=== PATIENT | female | born 1945 | race Caucasian/White ===

== ENCOUNTER 2021-02-25 10:46 | Inpatient (IN) | payer OTHER ==
[~2021-02-25] VITALS: Ht 167.6 cm; Wt 63.5 kg
[2021-02-25 10:59] VITALS: BP 165/95
[2021-02-25 11:26] LABS: URINE BILIRUBIN NEGATIVE (Negative); URINE BLOOD TRACE (Negative); URINE CLARITY CLEAR; URINE COLOR YELLOW; URINE GLUCOSE-RANDOM* NEGATIVE (Negative); URINE KETONES 1+ (Negative); URINE LEUKOCYTES-REFLEX NEGATIVE (Negative); URINE PROTEIN (DIPSTICK) 1+ (Negative); URINE UROBILINOGEN 0.2 E.U./dl (0.2-1.0)
[2021-02-25 11:28] LABS: ABSOLUTE NEUTROPHILS 14.3 thou/uL (1.4-8.2); BASOPHILS 0.2 % (0.0-2.0); HEMATOCRIT 50.6 % (37.0-47.0); HEMOGLOBIN 16.9 gm/dL (12.0-15.0); LYMPHOCYTES 4.7 % (24.0-44.0); MCH 30.1 pg (26.0-34.0); MCHC 33.4 g/dL (28.0-37.0); MCV 90.2 fL (80.0-100.0); MONOCYTES 6.1 % (1.0-8.0); PLATELET COUNT 320 thou/uL (150-400); RBC 5.61 mil/uL (4.20-5.00); RDW 13.5 % (10.5-14.5)
[2021-02-25 11:32] LABS: URINE NITRITE-REFLEX POSITIVE (Negative)
[2021-02-25 11:33] LABS: CALCIUM 9.9 mg/dL (8.5-10.1); CREATININE 0.9 mg/dL (0.6-1.0); POTASSIUM 3.9 mmol/L (3.5-5.1)
[2021-02-25 11:39] LABS: ALBUMIN 4.5 g/dL (3.4-5.0); TOTAL BILIRUBIN 0.9 mg/dL (0.2-1.0)
[2021-02-25 11:50] LABS: AMORPHOUS URATES Many /LPF (None Seen); SQUAMOUS None Seen /LPF (0-3); URINE WBC-REFLEX 6-15 Few /HPF (0-5)
[2021-02-25 11:51] LABS: BACTERIA-REFLEX 1-9 Few /HPF (None Seen); CASTS None Seen /LPF (None Seen); URINE RBC None Seen /HPF (NONE SEEN)
--- NOTE | 2021-02-25 17:30 | NUR ---
CECIT TO KERI.
--- NOTE | 2021-02-26 04:24 | NUR ---
ADMITTED TO THE UNIT AT APPROXIMATELY 2200. PT IS A/O X4 AND IS UP WITH ASSISTANCE. NG TUBE IN PLACE AND HOOKED UP TO LOW INTERMITTENT SUCTION. PATENT AND DRAINING BROWN LIQUID. ADMISSION COMPLETE. PT HAS BEEN EDUCATED ON USE OF CALL LIGHT AND BED CONTROLS. FALL PRECUATIONS IN PLACE, CALL LIGHT IS WITHIN REACH.
[2021-02-26] MEDS ORDERED: PRED FORTE 1% EY5 M1 LT. EYE (05:38)
[2021-02-26] MEDS ORDERED: KETOROLAC 0.5% E5 ML (05:39)
[2021-02-26 07:35] VITALS: BP 144/99
[2021-02-26 08:07] LABS: HEMATOCRIT 47.4 % (37.0-47.0); HEMOGLOBIN 15.9 gm/dL (12.0-15.0); MCH 30.1 pg (26.0-34.0); MCHC 33.5 g/dL (28.0-37.0); MCV 89.7 fL (80.0-100.0); RBC 5.28 mil/uL (4.20-5.00); RDW 13.5 % (10.5-14.5)
[2021-02-26 08:49] LABS: ALBUMIN 3.6 g/dL (3.4-5.0); CALCIUM 9.4 mg/dL (8.5-10.1); CREATININE 0.6 mg/dL (0.6-1.0); MAGNESIUM 1.9 mg/dL (1.8-2.4); PHOSPHORUS 3.7 mg/dL (2.5-4.9); POTASSIUM 3.6 mmol/L (3.5-5.1)
--- NOTE | 2021-02-26 17:16 | NUR ---
PT ASSESSED AT START OF SHIFT. NPO W/ NG TO LIS W/ DK REDDISH BROWN OUTPUT. IRRIGATED W/ NS TWICE. AMBULATED THE HALLS SEVERAL LAPS. STATES ABD PAIN MUCH BETTER AND ALMOST GONE. NO FLATUS PASSED. NO C/O NAUSEA.
[2021-02-26 19:45] VITALS: BP 175/94
--- NOTE | 2021-02-27 03:17 | NUR ---
PT IS A/O X4 AND IS UP WITH ASSISTANCE. C/O STOMACH DISCOMFORT. SCHEDULED PEPSID GIVEN DIRECTED. FALL PRECAUTIONS IN PLACE, CALL LIGHT IS WITHIN REACH. NG TO RIGHT NARE HOOKED UP TO LOW INTERMITTENT SUCTION. FALL PRECUATIONS IN PLACE,CALL LIGHT IS WITHIN REACH. PT CALLS OUT APPROPRIATELY FOR ASSISTANCE.
[2021-02-27 09:00] VITALS: BP 153/93
[2021-02-27 09:11] VITALS: BP 174/105
[2021-02-27 10:16] LABS: CALCIUM 9.3 mg/dL (8.5-10.1); CREATININE 0.7 mg/dL (0.6-1.0); POTASSIUM 3.4 mmol/L (3.5-5.1)
--- NOTE | 2021-02-27 12:30 | NUR ---
ASSUMED PT CARE THIS AM. PT HAS NG TUBE ON R NARIS WITH LOW INTERMITTENT SUCTION IN PLACE AND FOR DECOMPRESSION. PT C/O OF PAIN AND GIVEN PAIN MEDICATION PER PT REQUEST. CALLED RADIOLOGY THAT DR WANTED XR SMALL BOWEL SERIES TO BE DONE TODAY PER DR ORDERED. PT IS STAND BY ASSIST TO THE BATHROOM. PT WAS AMBULATING IN THE HALLWAY THIS MORNING. WILL CONTINUE TO MONITOR PT. FOLLOW POC.
[2021-02-27 16:00] VITALS: BP 171/105
[2021-02-27 20:00] VITALS: BP 183/123
[2021-02-27 23:19] VITALS: BP 135/69
--- NOTE | 2021-02-28 03:56 | NUR ---
PT IS A/O X4 AND IS UP WITH ASSIST. BP ELEVATED. PRN HYDRALAZINE GIVEN DIRECTED. BP LEVEL CURRENTLY WNL. PT AT THIS TIME IS RESTING IN THE RECLINER STATING SHE IS FEELING MUCH BETTER. NG DRAINING COPIUS AMOUNTS OF DARK GREEN LIQUID THIS SHIFT. FALL PRECUATIONS IN PLACE, CALL LIGHT IS WITHIN REACH.
[2021-02-28 06:59] LABS: HEMATOCRIT 47.9 % (37.0-47.0); HEMOGLOBIN 16.3 gm/dL (12.0-15.0); MCH 30.7 pg (26.0-34.0); MCHC 34.1 g/dL (28.0-37.0); MCV 90.2 fL (80.0-100.0); RBC 5.31 mil/uL (4.20-5.00); RDW 13.3 % (10.5-14.5); WBC 7.8 thou/uL (4.0-11.0)
[2021-02-28 07:00] VITALS: BP 177/113
[2021-02-28 07:24] LABS: ALBUMIN 3.8 g/dL (3.4-5.0); CALCIUM 9.8 mg/dL (8.5-10.1); CREATININE 0.9 mg/dL (0.6-1.0); MAGNESIUM 2.6 mg/dL (1.8-2.4); PHOSPHORUS 3.5 mg/dL (2.5-4.9); POTASSIUM 3.3 mmol/L (3.5-5.1)
--- NOTE | 2021-02-28 11:21 | NUR ---
A/O X 4. ROOM AIR. STAND BY ASSIST. NG TUBE TO RIGHT NARE @ 60 LOW INTERMITTENT SUCTION WITH DARK GREEN OUTPUT IN CANISTER. AC HS ACCU CHECKS. NO N/V. WALKS AROUND UNIT OFTEN. NPO ABLE TO HAVE A CUP OF ICE CHIPS PER EVERY 6HOURS. BP 177/113 CLONIDINE PATCH PLACED LEFT UPPER ARM. NPO FULLY AFTER MIDNIGHT FOR SURGERY TOMORROW WITH .
[2021-02-28 19:47] VITALS: BP 173/116
--- NOTE | 2021-02-28 23:06 | NUR ---
ASSUMED CARE OF PT AT 1920. PT IS A&OX4. IS ON ROOM AIR. DENIES ABD PAIN. NG TUBE IN RIGHT NARE ON LOW INTERMITTENT SUCTION, WITH DARK GREEN GI CONTENTS. DENIES N/V. IS ALLOWED TO HAVE 1 CUP OF ICE CHIPS Q4H. LAST GIVEN AT 2200. IS NPO AT MIDNIGHT TONIGHT FOR TOMORROWS PROCEDURE. IS UP ADLIB TO BSC. CALLS FOR ASSISTANCE FOR FURTHER DISTANCE. PT BP WAS ELEVATED. PRN HYDRALYZINE ADMINISTERED. PT DENIES HEADACHE OR OTHER SYMPTOMS. HOURLY ROUNDING CONTINUED THIS SHIFT. LABS & VITALS REVIEWED. PT IS CURRENTLY IN BED, WATCHING TV. CALL LIGHT WITHIN REACH. WILL CONTINUE TO MONITOR.
[2021-03-01] VITALS (7 sets, daily range): BP systolic 133–153; BP diastolic 75–94
[2021-03-01 05:56] LABS: HEMATOCRIT 45.5 % (37.0-47.0); HEMOGLOBIN 15.6 gm/dL (12.0-15.0); MCH 30.9 pg (26.0-34.0); MCHC 34.3 g/dL (28.0-37.0); MCV 89.9 fL (80.0-100.0); RBC 5.05 mil/uL (4.20-5.00); RDW 13.3 % (10.5-14.5); WBC 8.8 thou/uL (4.0-11.0)
[2021-03-01 06:25] LABS: CALCIUM 9.1 mg/dL (8.5-10.1); CREATININE 0.8 mg/dL (0.6-1.0)
[2021-03-01 06:30] LABS: POTASSIUM 2.9 mmol/L (3.5-5.1)
--- NOTE | 2021-03-01 18:30 | NUR ---
PT ASSESSED AT START OF SHIFT. NPO THIS AM FOR EXP LAP W/ RELEASE OF ADHESION. NG TUBE REMAINS TO LIS W/ DK GREEN OUTPUT. TAKING ICE CHIPS PER ORDER. DENIES PAIN OR NAUSEA. IV FLUIDS INFUSING. VOIDS PER BSC W/ STANDBY.
[2021-03-02 05:45] LABS: CALCIUM 8.4 mg/dL (8.5-10.1); CREATININE 0.8 mg/dL (0.6-1.0); POTASSIUM 3.3 mmol/L (3.5-5.1)
[2021-03-02 06:28] LABS: HEMATOCRIT 41.3 % (37.0-47.0); HEMOGLOBIN 13.8 gm/dL (12.0-15.0); MCH 30.5 pg (26.0-34.0); MCHC 33.6 g/dL (28.0-37.0); RBC 4.53 mil/uL (4.20-5.00); RDW 13.4 % (10.5-14.5); WBC 9.3 thou/uL (4.0-11.0)
[2021-03-02 07:32] VITALS: BP 117/75
--- NOTE | 2021-03-02 07:34 | NUR ---
RECEIVED CARE OF THIS PATIENT AT 1900. PATIENT ALERT AND ORIENTED X4. UP TO BSC WITH SBA. HAS NG IN R [place] HOOKED TO [facility] WITH INTERMITTEN SUCTION. ACCUCHECK WAS 131, RECEIVED 4 UNITS LISPRO INSULIN. HAS 2 PIV'S WITH FLUIDS INFUSING IN THE RHAND. DENIES PAIN. SLEPT OFF AND ON DURING NIGHT. REMAINS NPO EXCEPT FOR ICE CHIPS.
--- NOTE | 2021-03-02 10:20 | NUR ---
ASSUMED PT CARE THIS AM. PT IS ALERT & ORIENTED X4. PT HAS IV SITES ON R HAND AND L WRIST. PT IS NPO EXCEPT MEDS. PT IS ON ROOM AIR. PT AMBULATED WITH [employer] FIRST OFFICER THIS AM. PT HAS NG TUBE ON R NARIS WITH LOW INT SUCTION. NO C/O OF PAIN, NAUSEA AND VOMITING. PT STATED THAT SHE IS PASSING A LITTLE BIT OF GAS. PT HAS 4 LAP SITES WITH DERMABOND C/D/I AND OPEN TO AIR. WILL CONTINUE TO MONITOR PT. FOLLOW POC.
--- NOTE | 2021-03-02 13:39 | NUR ---
Assess due to admit with SBO and pt has been npo/clears for past 5 days. No reported wt loss, but intake down with n/v and required NGT and OR on 03/01. Noted pt usually active prior admit, BMI 22. Presents low nutrition risk and will follow for timely diet advance.
--- NOTE | 2021-03-02 17:38 | NUR ---
Patient admits with uti/SBO. 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 She excercises, drives, uses no assistive device. Patient reports her insurance changed to [employer] this year. She gave information to [employer]. Sister her support in community. [facility] patient interested [facility] care but does not have a PCP. will inquire into Hospitalist if can follow for home health care. [facility] following.
[2021-03-02 18:10] VITALS: BP 112/66
[2021-03-02 19:42] VITALS: BP 104/68
--- NOTE | 2021-03-03 02:34 | NUR ---
PT HAS PROGRESSED DIET TO CRACKERS. TOLERATING WELL. PT IS A/O X4 AND IS UP AD ALAN. VSS. MEDICATION GIVEN DIRECTED. PT IS PROGRESSING TOWARDS PLAN OF DC GOALS. CALLS OUT APPROPRIATELY FOR ASSISTANCE. CALL LIGHT IS WITHIN REACH
[2021-03-03 07:48] VITALS: BP 144/77
--- NOTE | 2021-03-03 13:15 | NUR ---
ASSUMED PT CARE THIS AM. PT IS ALERT & ORIENTED X4. PT HAS IV SITE ON L WRIST. PT LAST BM WAS TODAY. PT TOLERATED DIET AND MEDICATION WELL. PT IS ON ROOM AIR. PT IS ACCUCHECK ACHS. NO C/O OF PAIN, NAUSEA AND VOMITING. WILL CONTINUE TO MONITOR PT. FOLLOW POC.
[2021-03-03 14:08] VITALS: BP 144/77
--- NOTE | 2021-03-03 15:18 | NUR ---
met with patient and plan home today. Patient wanting home health care. Reviewed with patient again, no preference for company. Faxed referral to [facility] they are able to accept. Patient with no PCP but Dr Briceno able to follow for home health care. Verified address, [facility] has orders. no further needs
== END 2021-03-03 14:59 | disposition home health service (06) | DRG 335 ==
LOC: ER 10:46 → 4S 16:15 → EROBS 16:15 → 4S 20:51
PROVIDERS: Emergency Medicine; Hospitalist; Surgery; ADMIT Surgery; ATTEND Surgery
DX: K56.51 Intestinal adhesions [bands], with partial obstruction (principal); R65.11 Systemic inflammatory response syndrome (SIRS) of non-infectious origin with acute organ dysfunction; E87.0 Hyperosmolality and hypernatremia; N30.00 Acute cystitis without hematuria; I10 Essential (primary) hypertension; B96.20 Unspecified Escherichia coli [E. coli] as the cause of diseases classified elsewhere; Z20.822 Contact with and (suspected) exposure to COVID-19; Z80.8 Family history of malignant neoplasm of other organs or systems; Z98.49 Cataract extraction status, unspecified eye; Z28.21 Immunization not carried out because of patient refusal
CPT/HCPCS: 10195; 50010; 50101; 50411; 50455; 50555; 51489; 52265; 52266; 53307; 53310; 54022; 54118; 56525; 56526; 58574; 58586; 62110; 62900; 70005